=== PATIENT | male | born 1955 | race Two or more races ===

== ENCOUNTER 2018-01-22 05:39 | Day surgery (SDC) | payer OTHER ==
[~2018-01-22] VITALS: Ht 160 cm; Wt 140.0 kg
[2018-01-22] MEDS ORDERED: PRILOSEC OTC20 MG (05:42)
[2018-01-22] MEDS ORDERED: SIMVASTATIN40 MG (05:43)
[2018-01-22] MEDS ORDERED: XANAX2 MG (05:43)
[2018-01-22] MEDS ORDERED: ZOLOFT100 MG (05:43)
[2018-01-22] MEDS ORDERED: SINGULAIR10 MG (05:43)
[2018-01-23] MEDS ORDERED: OXYC1TAB9 PO (16:10)
== END 2018-01-23 15:20 | disposition home or self-care (01) ==
LOC: ER 05:39 → CIR.AMB 12:05 → SURG 12:05 → SEC-K 12:05 → EDSTATUS 17:30 → CIR.AMB 17:30 → O/R 20:30 → SEC-K 20:30 → SURG 23:17 → O/R 23:17 → SEC-K 23:17 → CIR.AMB 01-23 07:00 → SURG 01-23 17:32
DX: K64.5 Perianal venous thrombosis (principal); K64.8 Other hemorrhoids